=== PATIENT | female | born 1980 | race Caucasian/White ===

== ENCOUNTER 2017-03-11 00:19 | Emergency (ER) | payer OTHER ==
[~2017-03-11] VITALS: Ht 167.6 cm; Wt 127.0 kg
[~2017-03-11 00:19] MED LIST: ABILIFY30 MG PO; AMBIEN10 MG PO; ANAPROX DS550 MG PO; BACTRIM 400 MG-1 TAB PO; BENTYL10 MG PO; CARAFATE1 G1 PO; CELEXA20 MG PO; CELEXA40 MG PO; CLARITIN10 MG PO; COMPAZINE10 MG PO; CORTISPORIN SUS10 ML OT; COZAAR50 MG PO; DIPHENHYDRAMINE25 M2 PO; DONNATAL1 TAB PO; ELAVIL; ELAVIL25 MG PO; FLEXERIL5 MG PO; GEMFIBROZIL600 MG PO; HYDROCHLOROTH12.5 M1 PO; HYDROCHLOROTH12.5 M3 PO; HYDROCODONE BIT1 T11 PO; KEFLEX500 M1 PO; KEFLEX500 MG PO; LASIX20 MG PO; LOMOTIL 0.025 M1 TAB PO; MACROBID100 M1 PO; MEDROL DOSEPAK4 MG PO; MOTRIN800 MG PO; NEURONTIN400 MG PO; PHENERGAN25 M1 PO; PRED FORTE 1 ML1 ML OP; PREDNISONE10 MG PO; PREVACID SOLUTA30 MG PO; RISPERDAL1 M1 PO; SEPTRA DS 800 M1 TAB PO; TRAMADOL HCL50 MG PO; VICODIN 5/500 505 MG PO; VICODIN 500 MG-1 TAB PO; VICODIN ES 7501 TA1 PO; VICODIN ES 7501 TAB PO; VOLTAREN50 M1 PO; XANAX1 MG PO; ZANTAC150 MG PO; ZITHROMAX Z PA250 MG PO; ZOFRAN4 MG PO; ZOLPIDEM TART10 MG PO; Zofran4 MG PO
[2017-03-11] MEDS ORDERED: TRAZODONE50 MG PO (00:37)
[2017-03-11] MEDS ORDERED: PEPCID20 MG PO (00:39)
[2017-03-11] MEDS ORDERED: CIPRODEX 0.3%-7.5 ML OT (00:55)
[2017-03-11] MEDS ORDERED: CIPRO500 MG PO (01:06)
== END 2017-03-11 01:14 | disposition home or self-care (01) ==
LOC: ED 00:19
DX: H60.312 Diffuse otitis externa, left ear (principal); F17.200 Nicotine dependence, unspecified, uncomplicated; Z88.1 Allergy status to other antibiotic agents; Z88.6 Allergy status to analgesic agent; Z88.8 Allergy status to other drugs, medicaments and biological substances; Z79.899 Other long term (current) drug therapy

== ENCOUNTER 2017-06-21 11:51 | Emergency (ER) | payer OTHER ==
[~2017-06-21] VITALS: Ht 167.6 cm; Wt 122.0 kg
[~2017-06-21 11:51] MED LIST changes: +CIPRO500 MG PO; +CIPRODEX 0.3%-7.5 ML OT; +PEPCID20 MG PO; +TRAZODONE50 MG PO
[2017-06-21 13:17] LABS: BASO # 0.1 10*3/uL (0.0-0.1); BASO % 0.6 % (0.0-1.0); HEMATOCRIT 44.2 % (37.0-47.0); HEMOGLOBIN 15.2 g/dl (12.0-16.0); LYMPH # 1.9 10*3/uL (1.3-4.4); MEAN CELL VOLUME 95.7 fl (81.0-99.0); MEAN CORPUSCULAR HGB 32.9 pg (27.0-31.0); MEAN CORPUSCULAR HGB CONC 34.4 g/dl (33.0-37.0); MEAN PLATELET VOLUME 9.6 fl (9.6-12.3); MONO # 0.5 10*3/uL (0.1-1.0); MONO % 4.6 % (3.0-9.0); NEUT # 8.2 10*3/uL (2.3-7.9); NEUT % 76.5 % (47.0-73.0); PLATELET COUNT AUTOMATED 391 10*3/uL (130-400); RED BLOOD COUNT 4.62 10*6/uL (4.10-5.10); RED CELL DISTRI WIDTH 12.9 % (0-14.5); WHITE BLOOD COUNT 10.8 10*3/uL (4.8-10.8)
[2017-06-21 13:33] LABS: ALBUMIN 3.1 gm/dl (3.1-4.5); ALKALINE PHOSPHATASE 90 U/L (45-117); BILIRUBIN, TOTAL 0.3 mg/dl (0.2-1.0); BUN 7 mg/dl (7-24); CARBON DIOXIDE 28 mmol/L (21-32); CHLORIDE 108 mmol/L (98-107); EST GLOM FILT AFRICAN AMERICAN > 60 ml/min; GLUCOSE 104 mg/dL (65-99); POTASSIUM 4.1 mmol/L (3.5-5.1); SGOT/AST 16 IU/L (3-35); SGPT/ALT 17 U/L (12-78); SODIUM 138 mmol/L (136-145); TOTAL PROTEIN 8.1 gm/dL (6.4-8.2)
[2017-06-21 13:39] LABS: BILIRUBIN NEGATIVE (NEGATIVE); BLOOD 3+ (NEGATIVE); CLARITY CLOUDY (CLEAR); COLOR YELLOW (YELLOW); GLUCOSE NEGATIVE (NEGATIVE); KETONE NEGATIVE (NEGATIVE); LEUKO ESTERASE 2+ (NEGATIVE); NITRITE NEGATIVE (NEGATIVE); PROTEIN TRACE (NEGATIVE); SPECIFIC GRAVITY 1.025 (1.005-1.030)
[2017-06-21 13:45] LABS: BACTERIA 2+; RBC 41-50 rbc/hpf (0-2)
[2017-06-21 13:46] LABS: URINE REFLEX COMMENT YES (NO)
[2017-06-21] MEDS ORDERED: PERCOCET 5-3251 EACH PO (15:31)
[2017-06-21] MEDS ORDERED: CIPRO500 MG PO (15:31)
[2017-06-21] MEDS ORDERED: FLOMAX0.4 MG PO (15:31)
== END 2017-06-21 17:01 | disposition home or self-care (01) ==
LOC: ED 11:51
PROVIDERS: Nurse Practitioner Family
DX: N20.0 Calculus of kidney (principal); I10 Essential (primary) hypertension; E78.5 Hyperlipidemia, unspecified; Z88.1 Allergy status to other antibiotic agents; Z88.6 Allergy status to analgesic agent; Z88.8 Allergy status to other drugs, medicaments and biological substances; Z79.899 Other long term (current) drug therapy

== ENCOUNTER 2017-08-04 18:27 | Emergency (ER) | payer OTHER ==
[~2017-08-04] VITALS: Wt 120.2 kg
[~2017-08-04 18:27] MED LIST changes: +FLOMAX0.4 MG PO; +PERCOCET 5-3251 EACH PO
[2017-08-04] MEDS ORDERED: CIPRO500 MG PO (19:10)
[2017-08-04] MEDS ORDERED: CIPRODEX 0.3%-7.5 ML OT (19:10)
== END 2017-08-04 19:18 | disposition home or self-care (01) ==
LOC: ED 18:27
DX: H66.92 Otitis media, unspecified, left ear (principal); F17.200 Nicotine dependence, unspecified, uncomplicated; Z90.49 Acquired absence of other specified parts of digestive tract; Z98.890 Other specified postprocedural states; Z79.899 Other long term (current) drug therapy; Z88.6 Allergy status to analgesic agent; Z88.1 Allergy status to other antibiotic agents; Z88.8 Allergy status to other drugs, medicaments and biological substances

== ENCOUNTER 2018-01-14 17:00 | Emergency (ER) | payer OTHER ==
[~2018-01-14] VITALS: Ht 167.6 cm; Wt 113.4 kg
[2018-01-14] MEDS ORDERED: CEPHALEXIN500 M1 PO (17:23)
== END 2018-01-14 17:35 | disposition home or self-care (01) ==
LOC: ED 17:00
DX: L02.211 Cutaneous abscess of abdominal wall (principal); F17.200 Nicotine dependence, unspecified, uncomplicated; Z98.890 Other specified postprocedural states; Z90.49 Acquired absence of other specified parts of digestive tract; Z79.899 Other long term (current) drug therapy; Z88.6 Allergy status to analgesic agent; Z88.1 Allergy status to other antibiotic agents; Z88.8 Allergy status to other drugs, medicaments and biological substances

== ENCOUNTER → 2018-10-20 | Outpatient (CLI) | payer OTHER ==
[~2018-10-20] MED LIST changes: +AMINOPHYLLIN200 MG PO; +CEPHALEXIN500 M1 PO; +FAMOTIDINE40 MG PO; +IBU800 M1 PO; +LOSARTAN POTASS25 M1 PO; +PHENERGAN25 M3 PO; +PROVENTIL HFA6.7 GM INH
== END | disposition home or self-care (01) ==
LOC: MRI 15:00
DX: M48.07 Spinal stenosis, lumbosacral region (principal); M51.37 Other intervertebral disc degeneration, lumbosacral region; M51.27 Other intervertebral disc displacement, lumbosacral region; M47.897 Other spondylosis, lumbosacral region

== ENCOUNTER 2018-11-15 20:00 | Emergency (ER) | payer OTHER ==
[~2018-11-15] VITALS: Ht 167.6 cm; Wt 113.4 kg
[2018-11-15] MEDS ORDERED: SEPTDS PO (21:12)
[2018-11-15] MEDS ORDERED: CEPHALEXIN500 M1 PO (21:12)
== END 2018-11-15 21:30 | disposition home or self-care (01) ==
LOC: ED 20:00
DX: N61.1 Abscess of the breast and nipple (principal); I10 Essential (primary) hypertension; G89.29 Other chronic pain; E78.5 Hyperlipidemia, unspecified; E66.01 Morbid (severe) obesity due to excess calories; F17.200 Nicotine dependence, unspecified, uncomplicated; Z90.49 Acquired absence of other specified parts of digestive tract; Z88.6 Allergy status to analgesic agent; Z88.1 Allergy status to other antibiotic agents; Z88.8 Allergy status to other drugs, medicaments and biological substances; Z79.2 Long term (current) use of antibiotics; Z79.899 Other long term (current) drug therapy; Z68.42 Body mass index [BMI] 45.0-49.9, adult

== ENCOUNTER 2019-05-20 21:43 | Emergency (ER) | payer OTHER ==
[~2019-05-20] VITALS: Ht 167.6 cm; Wt 120.2 kg
[~2019-05-20 21:43] MED LIST changes: +SEPTDS PO
[2019-05-20] MEDS ORDERED: ONDANSETRON HYDR4 MG PO (23:51)
[2019-05-20] MEDS ORDERED: 'XANAX1 MG PO (23:51)
[2019-06-05] MEDS ORDERED: Motrin,Rufen800 MG PO (23:02)
== END 2019-05-21 00:33 | disposition home or self-care (01) ==
LOC: ED 21:43
DX: S00.83XA Contusion of other part of head, initial encounter (principal); S50.01XA Contusion of right elbow, initial encounter; S80.01XA Contusion of right knee, initial encounter; M25.552 Pain in left hip; M79.652 Pain in left thigh; F17.200 Nicotine dependence, unspecified, uncomplicated; Z88.6 Allergy status to analgesic agent; Z88.1 Allergy status to other antibiotic agents; Z88.8 Allergy status to other drugs, medicaments and biological substances; Z79.899 Other long term (current) drug therapy; Z90.49 Acquired absence of other specified parts of digestive tract; W22.01XA Walked into wall, initial encounter; Y93.K1 Activity, walking an animal; Y92.89 Other specified places as the place of occurrence of the external cause; Y99.8 Other external cause status

== ENCOUNTER 2019-08-26 16:35 | Emergency (ER) | payer OTHER ==
[~2019-08-26] VITALS: Ht 167.6 cm; Wt 113.4 kg
[~2019-08-26 16:35] MED LIST changes: +'XANAX1 MG PO; +Motrin,Rufen800 MG PO; +ONDANSETRON HYDR4 MG PO
[2019-08-26] MEDS ORDERED: CLINDAMYCIN HC300 MG PO (17:16)
[2019-08-26] MEDS ORDERED: NAPROSYN500 MG PO (17:16)
== END 2019-08-26 17:30 | disposition home or self-care (01) ==
LOC: ED 16:35
DX: K02.9 Dental caries, unspecified (principal); F17.200 Nicotine dependence, unspecified, uncomplicated; Z98.890 Other specified postprocedural states; Z90.49 Acquired absence of other specified parts of digestive tract; Z79.899 Other long term (current) drug therapy; Z88.6 Allergy status to analgesic agent; Z88.1 Allergy status to other antibiotic agents; Z88.8 Allergy status to other drugs, medicaments and biological substances

== ENCOUNTER 2019-10-05 19:07 | Emergency (ER) | payer OTHER ==
[~2019-10-05] VITALS: Ht 167.6 cm; Wt 116.1 kg
[~2019-10-05 19:07] MED LIST changes: +CLINDAMYCIN HC300 MG PO; +NAPROSYN500 MG PO
[2019-10-05] MEDS ORDERED: IBUPROFEN600 MG PO (20:49)
== END 2019-10-05 21:50 | disposition home or self-care (01) ==
LOC: ED 19:07
DX: S50.01XA Contusion of right elbow, initial encounter (principal); F17.200 Nicotine dependence, unspecified, uncomplicated; Z88.6 Allergy status to analgesic agent; Z88.1 Allergy status to other antibiotic agents; Z88.8 Allergy status to other drugs, medicaments and biological substances; Z79.899 Other long term (current) drug therapy; Z79.2 Long term (current) use of antibiotics; Y92.090 Kitchen in other non-institutional residence as the place of occurrence of the external cause; W07.XXXA Fall from chair, initial encounter; Y93.89 Activity, other specified; Y99.8 Other external cause status

== ENCOUNTER 2019-10-15 11:46 | Emergency (ER) | payer OTHER ==
[~2019-10-15] VITALS: Ht 167.6 cm; Wt 116.1 kg
[~2019-10-15 11:46] MED LIST changes: +IBUPROFEN600 MG PO
[2019-10-15] MEDS ORDERED: CLINDAMYCIN HC300 MG PO (12:58)
[2019-10-15] MEDS ORDERED: IBUPROFEN600 MG PO (12:58)
== END 2019-10-15 13:57 | disposition home or self-care (01) ==
LOC: ED 11:46
DX: K04.7 Periapical abscess without sinus (principal); I10 Essential (primary) hypertension; Z88.0 Allergy status to penicillin; Z88.8 Allergy status to other drugs, medicaments and biological substances; Z79.899 Other long term (current) drug therapy

== ENCOUNTER → 2020-06-14 | Outpatient (CLI) | payer OTHER ==
[2020-06-14 13:39] LABS: BASO % 0.5 % (0.0-1.0); EOS # 0.2 10*3/uL (0.0-0.4); EOS % 2.8 % (1.0-4.0); HEMATOCRIT 42.4 % (37.0-47.0); LYMPH # 2.9 10*3/uL (1.3-4.4); LYMPH % 38.5 % (27.0-41.0); MEAN CELL VOLUME 98.6 fl (81.0-99.0); MEAN CORPUSCULAR HGB 32.1 pg (27.0-31.0); MEAN CORPUSCULAR HGB CONC 32.5 g/dl (33.0-37.0); MEAN PLATELET VOLUME 9.3 fl (9.6-12.3); MONO # 0.5 10*3/uL (0.1-1.0); MONO % 6.8 % (3.0-9.0); NEUT # 3.8 10*3/uL (2.3-7.9); PLATELET COUNT AUTOMATED 358 10*3/uL (130-400); RED CELL DISTRI WIDTH 12.7 % (0-14.5); RETICULOCYTE % 2.05 % (0.50-2.50); WHITE BLOOD COUNT 7.5 10*3/uL (4.8-10.8)
[2020-06-14 14:17] LABS: BILIRUBIN NEGATIVE (NEGATIVE); BLOOD NEGATIVE (NEGATIVE); CLARITY CLEAR (CLEAR); COLOR YELLOW (YELLOW); GLUCOSE NEGATIVE (NEGATIVE); KETONE NEGATIVE (NEGATIVE); LEUKO ESTERASE NEGATIVE (NEGATIVE); NITRITE NEGATIVE (NEGATIVE); UROBILINOGEN 0.2 E.U./dl (0.2-1.0)
[2020-06-14 14:18] LABS: ALBUMIN 3.3 gm/dl (3.1-4.5); ALKALINE PHOSPHATASE 81 U/L (45-117); BUN 7 mg/dl (7-24); CHLORIDE 108 mmol/L (98-107); CHOLESTEROL 186 mg/dL (<200); CPK 43 U/L (26-192); CREATININE 0.71 mg/dL (0.55-1.02); GAMMA GLUTAMYL TRANSPEPTIDASE 29 U/L (5-55); HDL CHOLESTEROL 30 mg/dl (40-60); IRON 80 ug/dL (50-170); LDL CHOLESTEROL 102 mg/dL (9-159); POTASSIUM 3.8 mmol/L (3.5-5.1); SGOT/AST 19 IU/L (3-35); SGPT/ALT 31 U/L (12-78); SODIUM 141 mmol/L (136-145); TOTAL IRON BINDING CAPACITY 272 ug/dl (250-450); TOTAL PROTEIN 7.6 gm/dL (6.4-8.2); TRIGLYCERIDES 269 mg/dl (<150); VLDL CHOLESTEROL 54 mg/dL (6-40)
[2020-06-14 14:28] LABS: BACTERIA 1+; MUCOUS TRACE; RBC 0-2 rbc/hpf (0-2)
[2020-06-14 14:29] LABS: FERRITIN 147.8 ng/mL (10.0-291.0); VITAMIN D, 25-HYDROXY 25.3 ng/mL (30-100)
== END | disposition home or self-care (01) ==
LOC: LAB 12:53
PROVIDERS: Family Medicine
DX: R79.89 Other specified abnormal findings of blood chemistry (principal); R53.83 Other fatigue; E55.9 Vitamin D deficiency, unspecified; E78.5 Hyperlipidemia, unspecified

== ENCOUNTER → 2021-03-31 | Outpatient (CLI) | payer OTHER ==
[2021-03-31 15:33] LABS: BASO # 0.1 10*3/uL (0.0-0.1); BASO % 1.1 % (0.0-1.0); EOS # 0.1 10*3/uL (0.0-0.4); EOS % 1.6 % (1.0-4.0); HEMATOCRIT 41.4 % (37.0-47.0); LYMPH # 3.6 10*3/uL (1.3-4.4); LYMPH % 42.9 % (27.0-41.0); MEAN CELL VOLUME 97.6 fl (81.0-99.0); MEAN CORPUSCULAR HGB 31.8 pg (27.0-31.0); MEAN CORPUSCULAR HGB CONC 32.6 g/dl (33.0-37.0); MEAN PLATELET VOLUME 9.7 fl (9.6-12.3); MONO # 0.5 10*3/uL (0.1-1.0); MONO % 5.5 % (3.0-9.0); NEUT # 4.1 10*3/uL (2.3-7.9); NEUT % 48.8 % (47.0-73.0); PLATELET COUNT AUTOMATED 244 10*3/uL (130-400); RED BLOOD COUNT 4.24 10*6/uL (4.10-5.10); RED CELL DISTRI WIDTH 12.3 % (0-14.5); WHITE BLOOD COUNT 8.5 10*3/uL (4.8-10.8)
[2021-03-31 15:35] LABS: ALKALINE PHOSPHATASE 79 U/L (45-117); BILIRUBIN Negative (Negative); BLOOD Negative (Negative); BUN 8 mg/dl (7-24); CHLORIDE 115 mmol/L (98-107); CHOLESTEROL 161 mg/dL (<200); CLARITY Clear (Clear); COLOR Yellow (Yellow); GAMMA GLUTAMYL TRANSPEPTIDASE 8 U/L (5-55); GLUCOSE Negative (Negative); KETONE Trace (Negative); LDL CHOLESTEROL 90 mg/dL (9-159); LEUKO ESTERASE Negative (Negative); NITRITE Negative (Negative); PH 5.5 (4.5-8.0); POTASSIUM 4.1 mmol/L (3.5-5.1); SGOT/AST 13 IU/L (3-35); SGPT/ALT 22 U/L (12-78); SODIUM 140 mmol/L (136-145); SPECIFIC GRAVITY >= 1.030 (1.001-1.030); TOTAL IRON BINDING CAPACITY 403 ug/dl (250-450); TOTAL PROTEIN 7.5 gm/dL (6.4-8.2); TRIGLYCERIDES 211 mg/dl (<150)
[2021-03-31 15:37] LABS: RETICULOCYTE % 1.69 % (0.50-2.50)
[2021-03-31 15:42] LABS: IRON 64 ug/dL (50-170)
[2021-03-31 15:45] LABS: FERRITIN 142.8 ng/mL (10.0-291.0); VITAMIN D, 25-HYDROXY 11.1 ng/mL (30-100)
[2021-03-31 15:52] LABS: BACTERIA 1+; EPITHELIAL CELLS 31-40; MUCOUS 2+; WBC 0-2 wbc/hpf (0-5)
[2021-03-31 15:53] LABS: RBC 0-2 rbc/hpf (0-2); YEAST TRACE
== END | disposition home or self-care (01) ==
LOC: LAB 14:57
PROVIDERS: ATTEND Family Medicine
DX: E55.9 Vitamin D deficiency, unspecified (principal); R79.89 Other specified abnormal findings of blood chemistry; R53.83 Other fatigue; E78.5 Hyperlipidemia, unspecified; R74.8 Abnormal levels of other serum enzymes

== ENCOUNTER 2021-04-20 20:35 | Emergency (ER) | payer OTHER ==
[~2021-04-20] VITALS: Ht 167.6 cm; Wt 114.3 kg
[2021-04-20 21:37] LABS: BASO # 0.1 10*3/uL (0.0-0.1); BASO % 0.5 % (0.0-1.0); EOS # 0.3 10*3/uL (0.0-0.4); EOS % 2.9 % (1.0-4.0); HEMATOCRIT 38.2 % (37.0-47.0); LYMPH # 3.6 10*3/uL (1.3-4.4); LYMPH % 39.2 % (27.0-41.0); MEAN CELL VOLUME 95.7 fl (81.0-99.0); MEAN CORPUSCULAR HGB 31.8 pg (27.0-31.0); MEAN CORPUSCULAR HGB CONC 33.2 g/dl (33.0-37.0); MEAN PLATELET VOLUME 9.2 fl (9.6-12.3); MONO # 0.5 10*3/uL (0.1-1.0); MONO % 5.6 % (3.0-9.0); NEUT # 4.8 10*3/uL (2.3-7.9); NEUT % 51.6 % (47.0-73.0); PLATELET COUNT AUTOMATED 394 10*3/uL (130-400); RED BLOOD COUNT 3.99 10*6/uL (4.10-5.10); RED CELL DISTRI WIDTH 12.3 % (0-14.5); WHITE BLOOD COUNT 9.3 10*3/uL (4.8-10.8)
== END 2021-04-20 22:13 | disposition home or self-care (01) ==
LOC: ED 20:35
PROVIDERS: Internal Medicine
DX: M79.672 Pain in left foot (principal); Z48.01 Encounter for change or removal of surgical wound dressing; Z88.8 Allergy status to other drugs, medicaments and biological substances; Z79.899 Other long term (current) drug therapy; Z90.49 Acquired absence of other specified parts of digestive tract; Z98.890 Other specified postprocedural states

== ENCOUNTER 2021-04-23 16:26 | Emergency (ER) | payer OTHER ==
[~2021-04-23] VITALS: Wt 114.3 kg
[2021-04-23] MEDS ORDERED: CLEOCIN HCL150 MG PO (16:56)
== END 2021-04-23 17:15 | disposition home or self-care (01) ==
LOC: ED 16:26
DX: Z48.01 Encounter for change or removal of surgical wound dressing (principal); Z79.899 Other long term (current) drug therapy; Z98.890 Other specified postprocedural states; Z90.49 Acquired absence of other specified parts of digestive tract

== ENCOUNTER → 2021-05-06 | Outpatient (CLI) | payer OTHER ==
[~2021-05-06] MED LIST changes: +CLEOCIN HCL150 MG PO
== END ==
LOC: WOUNDCARE 03:10
PROVIDERS: ATTEND Nurse Practitioner
DX: T81.40XA Infection following a procedure, unspecified, initial encounter (principal); R22.42 Localized swelling, mass and lump, left lower limb; F17.290 Nicotine dependence, other tobacco product, uncomplicated; Z90.49 Acquired absence of other specified parts of digestive tract; Z98.890 Other specified postprocedural states; Z79.899 Other long term (current) drug therapy; Y83.8 Other surgical procedures as the cause of abnormal reaction of the patient, or of later complication, without mention of misadventure at the time of the procedure; Y92.238 Other place in hospital as the place of occurrence of the external cause

== ENCOUNTER → 2021-05-09 | Outpatient (CLI) | payer OTHER | END | disposition home or self-care (01) | LOC: US 09:42 | PROVIDERS: ATTEND Nurse Practitioner | DX: I73.9 Peripheral vascular disease, unspecified (principal) ==

== ENCOUNTER → 2021-05-13 | Outpatient (CLI) | payer OTHER | LOC: WOUNDCARE 01:10 | PROVIDERS: ATTEND Nurse Practitioner | DX: T81.40XD Infection following a procedure, unspecified, subsequent encounter (principal); R22.42 Localized swelling, mass and lump, left lower limb; F17.290 Nicotine dependence, other tobacco product, uncomplicated; Z71.6 Tobacco abuse counseling; Z90.49 Acquired absence of other specified parts of digestive tract; Z98.890 Other specified postprocedural states; Z79.899 Other long term (current) drug therapy; Y83.8 Other surgical procedures as the cause of abnormal reaction of the patient, or of later complication, without mention of misadventure at the time of the procedure ==

== ENCOUNTER → 2021-05-19 | Outpatient (CLI) | payer OTHER | LOC: WOUNDCARE 01:04 | PROVIDERS: ATTEND Nurse Practitioner | DX: T81.40XD Infection following a procedure, unspecified, subsequent encounter (principal); R22.42 Localized swelling, mass and lump, left lower limb; F17.290 Nicotine dependence, other tobacco product, uncomplicated; Z71.6 Tobacco abuse counseling; Z90.49 Acquired absence of other specified parts of digestive tract; Z98.890 Other specified postprocedural states; Z79.899 Other long term (current) drug therapy; Y83.8 Other surgical procedures as the cause of abnormal reaction of the patient, or of later complication, without mention of misadventure at the time of the procedure ==

== ENCOUNTER → 2021-05-23 | Outpatient (CLI) | payer OTHER ==
[2021-05-23 14:53] LABS: BASO # 0.1 10*3/uL (0.0-0.1); BASO % 0.6 % (0.0-1.0); EOS # 0.3 10*3/uL (0.0-0.4); EOS % 2.8 % (1.0-4.0); HEMATOCRIT 41.5 % (37.0-47.0); LYMPH # 3.5 10*3/uL (1.3-4.4); LYMPH % 39.7 % (27.0-41.0); MEAN CELL VOLUME 95.8 fl (81.0-99.0); MEAN CORPUSCULAR HGB 31.9 pg (27.0-31.0); MEAN CORPUSCULAR HGB CONC 33.3 g/dl (33.0-37.0); MEAN PLATELET VOLUME 9.4 fl (9.6-12.3); MONO # 0.5 10*3/uL (0.1-1.0); MONO % 5.1 % (3.0-9.0); NEUT # 4.5 10*3/uL (2.3-7.9); NEUT % 51.7 % (47.0-73.0); PLATELET COUNT AUTOMATED 390 10*3/uL (130-400); RED BLOOD COUNT 4.33 10*6/uL (4.10-5.10); RED CELL DISTRI WIDTH 12.5 % (0-14.5); RETICULOCYTE % 2.04 % (0.50-2.50); WHITE BLOOD COUNT 8.8 10*3/uL (4.8-10.8)
[2021-05-23 15:12] LABS: ALBUMIN 3.6 gm/dl (3.1-4.5); BUN 9 mg/dl (7-24); CHLORIDE 111 mmol/L (98-107); CHOLESTEROL 190 mg/dL (<200); CREATININE 0.65 mg/dL (0.55-1.02); GAMMA GLUTAMYL TRANSPEPTIDASE 21 U/L (5-55); IRON 64 ug/dL (50-170); LDL CHOLESTEROL 126 mg/dL (9-159); POTASSIUM 3.8 mmol/L (3.5-5.1); SGOT/AST 12 IU/L (3-35); SGPT/ALT 20 U/L (12-78); SODIUM 139 mmol/L (136-145); TRIGLYCERIDES 163 mg/dl (<150)
[2021-05-23 15:17] LABS: FERRITIN 145.9 ng/mL (10.0-291.0); VITAMIN D, 25-HYDROXY 18.9 ng/mL (30-100)
[2021-05-23 15:19] LABS: ALKALINE PHOSPHATASE 70 U/L (45-117); TOTAL IRON BINDING CAPACITY 291 ug/dl (250-450)
== END | disposition home or self-care (01) ==
LOC: LAB 01:27
PROVIDERS: ATTEND Family Medicine
DX: E55.9 Vitamin D deficiency, unspecified (principal); R79.89 Other specified abnormal findings of blood chemistry; R53.83 Other fatigue; E78.5 Hyperlipidemia, unspecified; R74.8 Abnormal levels of other serum enzymes

== ENCOUNTER → 2021-05-26 | Outpatient (CLI) | payer OTHER | LOC: WOUNDCARE 01:14 | PROVIDERS: ATTEND Nurse Practitioner | DX: T81.40XD Infection following a procedure, unspecified, subsequent encounter (principal); R22.42 Localized swelling, mass and lump, left lower limb; F17.290 Nicotine dependence, other tobacco product, uncomplicated; Z71.6 Tobacco abuse counseling; Y83.8 Other surgical procedures as the cause of abnormal reaction of the patient, or of later complication, without mention of misadventure at the time of the procedure ==

== ENCOUNTER → 2021-06-04 | Outpatient (CLI) | payer OTHER | LOC: WOUNDCARE 06-02 01:13 | PROVIDERS: ATTEND Nurse Practitioner Primary Care | DX: T81.40XD Infection following a procedure, unspecified, subsequent encounter (principal); R22.42 Localized swelling, mass and lump, left lower limb; F17.290 Nicotine dependence, other tobacco product, uncomplicated; Z71.6 Tobacco abuse counseling; Y83.8 Other surgical procedures as the cause of abnormal reaction of the patient, or of later complication, without mention of misadventure at the time of the procedure ==

== ENCOUNTER → 2021-06-16 | Outpatient (CLI) | payer OTHER | LOC: WOUNDCARE 06-11 02:11 | PROVIDERS: ATTEND Nurse Practitioner | DX: T81.40XD Infection following a procedure, unspecified, subsequent encounter (principal); R22.42 Localized swelling, mass and lump, left lower limb; F17.290 Nicotine dependence, other tobacco product, uncomplicated; Z71.6 Tobacco abuse counseling; Y83.8 Other surgical procedures as the cause of abnormal reaction of the patient, or of later complication, without mention of misadventure at the time of the procedure ==

== ENCOUNTER → 2021-06-23 | Outpatient (CLI) | payer OTHER | LOC: WOUNDCARE 01:03 | PROVIDERS: ATTEND Nurse Practitioner | DX: T81.40XD Infection following a procedure, unspecified, subsequent encounter (principal); T81.31XD Disruption of external operation (surgical) wound, not elsewhere classified, subsequent encounter; R22.42 Localized swelling, mass and lump, left lower limb; F17.290 Nicotine dependence, other tobacco product, uncomplicated; Z71.6 Tobacco abuse counseling; Y83.8 Other surgical procedures as the cause of abnormal reaction of the patient, or of later complication, without mention of misadventure at the time of the procedure ==

== ENCOUNTER → 2021-07-01 | Outpatient (CLI) | payer OTHER ==
[~2021-07-01] MED LIST changes: +ZOFRAN4 MG SL
== END ==
LOC: WOUNDCARE 01:28
PROVIDERS: ATTEND Nurse Practitioner
DX: T81.31XD Disruption of external operation (surgical) wound, not elsewhere classified, subsequent encounter (principal); R22.42 Localized swelling, mass and lump, left lower limb; F17.290 Nicotine dependence, other tobacco product, uncomplicated; Z71.6 Tobacco abuse counseling; Y83.8 Other surgical procedures as the cause of abnormal reaction of the patient, or of later complication, without mention of misadventure at the time of the procedure

== ENCOUNTER 2021-07-20 19:47 | Emergency (ER) | payer OTHER ==
[~2021-07-20] VITALS: Wt 106.6 kg
[~2021-07-20 19:47] MED LIST changes: -ZOFRAN4 MG SL
[2021-07-20 23:31] LABS: MEAN CELL VOLUME 94.9 fl (81.0-99.0); MEAN CORPUSCULAR HGB 31.9 pg (27.0-31.0); MEAN CORPUSCULAR HGB CONC 33.7 g/dl (33.0-37.0); MEAN PLATELET VOLUME 9.4 fl (9.6-12.3); PLATELET COUNT AUTOMATED 351 10*3/uL (130-400); RED BLOOD COUNT 4.32 10*6/uL (4.10-5.10); RED CELL DISTRI WIDTH 12.3 % (0-14.5); WHITE BLOOD COUNT 10.5 10*3/uL (4.8-10.8)
[2021-07-20 23:57] LABS: BILIRUBIN Negative (Negative); BLOOD Negative (Negative); CLARITY Turbid (Clear); COLOR Yellow (Yellow); GLUCOSE Negative (Negative); KETONE Trace (Negative); LEUKO ESTERASE Negative (Negative); NITRITE Negative (Negative); PH 6.5 (4.5-8.0)
[2021-07-21 00:04] LABS: ALBUMIN 3.3 gm/dl (3.1-4.5); ALKALINE PHOSPHATASE 74 U/L (45-117); BUN 8 mg/dl (7-24); CHLORIDE 108 mmol/L (98-107); CREATININE 0.62 mg/dL (0.55-1.02); LIPASE 94 U/L (73-393); PLATELET SUFFICIENCY NORMAL (NORMAL); POTASSIUM 3.4 mmol/L (3.5-5.1); SGOT/AST 12 IU/L (3-35); SGPT/ALT 26 U/L (12-78); SODIUM 142 mmol/L (136-145); TOTAL CELLS COUNTED 100 #CELLS; TOTAL PROTEIN 7.4 gm/dL (6.4-8.2)
[2021-07-21 00:07] LABS: BETA-HCG, QUANT < 1.0 mIU/mL (1-3)
[2021-07-21 00:09] LABS: CALCIUM OXALATE CRYSTALS Trace; RBC 0-2 rbc/hpf (0-2); WBC 0-2 wbc/hpf (0-5)
[2021-07-21] MEDS ORDERED: ZOFRAN4 MG SL (00:31)
== END 2021-07-21 03:03 | disposition home or self-care (01) ==
LOC: ED 19:47
PROVIDERS: Physician Assistant
DX: R10.30 Lower abdominal pain, unspecified (principal); R11.2 Nausea with vomiting, unspecified; F17.200 Nicotine dependence, unspecified, uncomplicated; Z90.49 Acquired absence of other specified parts of digestive tract; Z98.890 Other specified postprocedural states; Z88.1 Allergy status to other antibiotic agents; Z88.8 Allergy status to other drugs, medicaments and biological substances; Z79.899 Other long term (current) drug therapy; Z79.2 Long term (current) use of antibiotics

== ENCOUNTER → 2022-01-13 | Outpatient (CLI) | payer OTHER ==
[~2022-01-13] MED LIST changes: +ZOFRAN4 MG SL
== END | disposition home or self-care (01) ==
LOC: RAD 14:41
PROVIDERS: ATTEND Family Medicine
DX: M25.522 Pain in left elbow (principal)

== ENCOUNTER 2022-06-05 15:36 | Emergency (ER) | payer OTHER ==
[~2022-06-05] VITALS: Ht 167.6 cm; Wt 111.1 kg
[2022-06-05] MEDS ORDERED: KENALOG 0.1%80 GM T (16:38)
== END 2022-06-05 16:47 | disposition home or self-care (01) ==
LOC: ED 15:36
DX: L50.9 Urticaria, unspecified (principal); Z90.49 Acquired absence of other specified parts of digestive tract; Z98.890 Other specified postprocedural states; Z87.891 Personal history of nicotine dependence; Z79.899 Other long term (current) drug therapy; Z88.1 Allergy status to other antibiotic agents; Z88.8 Allergy status to other drugs, medicaments and biological substances

== ENCOUNTER 2022-06-07 13:18 | Emergency (ER) | payer OTHER ==
[~2022-06-07] VITALS: Wt 111.1 kg
[~2022-06-07 13:18] MED LIST changes: +KENALOG 0.1%80 GM T
== END 2022-06-07 14:52 | disposition home or self-care (01) ==
LOC: ED 13:18
DX: L30.8 Other specified dermatitis (principal); F17.200 Nicotine dependence, unspecified, uncomplicated; Z98.890 Other specified postprocedural states; Z90.49 Acquired absence of other specified parts of digestive tract; Z88.1 Allergy status to other antibiotic agents; Z88.8 Allergy status to other drugs, medicaments and biological substances

== ENCOUNTER 2022-09-20 13:40 | Emergency (ER) | payer OTHER ==
[~2022-09-20] VITALS: Wt 108.4 kg
[2022-09-20] MEDS ORDERED: VIBRA-TAB100 MG PO (14:05)
== END 2022-09-20 14:18 | disposition home or self-care (01) ==
LOC: ED 13:40
DX: L03.211 Cellulitis of face (principal); L02.01 Cutaneous abscess of face; Z87.891 Personal history of nicotine dependence; Z90.49 Acquired absence of other specified parts of digestive tract; Z98.890 Other specified postprocedural states; Z79.899 Other long term (current) drug therapy; Z88.1 Allergy status to other antibiotic agents

== ENCOUNTER 2023-01-23 16:11 | Emergency (ER) | payer OTHER ==
[~2023-01-23] VITALS: Ht 167.6 cm; Wt 103.9 kg
[~2023-01-23 16:11] MED LIST changes: +VIBRA-TAB100 MG PO
[2023-01-23] MEDS ORDERED: SEPTDS PO (17:10)
[2023-01-23] MEDS ORDERED: IBUPROFEN600 MG PO (17:10)
== END 2023-01-23 17:12 | disposition home or self-care (01) ==
LOC: ED 16:11
DX: L02.01 Cutaneous abscess of face (principal); F41.9 Anxiety disorder, unspecified; I10 Essential (primary) hypertension; F31.9 Bipolar disorder, unspecified; G47.00 Insomnia, unspecified; Z88.1 Allergy status to other antibiotic agents; Z90.49 Acquired absence of other specified parts of digestive tract; Z98.890 Other specified postprocedural states; F10.10 Alcohol abuse, uncomplicated

== ENCOUNTER → 2023-03-15 | Day surgery (SDC) | payer OTHER ==
[~2023-03-15] VITALS: Ht 167.6 cm; Wt 98.0 kg
[~2023-03-15] MED LIST changes: +HYDROCODONE-AC1 EAC1 PO; +ONDANSETRON HYDR4 M1 PO; +TRINTELLIX20 MG PO
[2023-03-15 09:45] VITALS: BP 149/76
[2023-03-15 11:35] VITALS: BP 137/86
[2023-03-15 11:50] VITALS: BP 143/80
== END | disposition home or self-care (01) ==
LOC: SDC 03-11 10:15
PROVIDERS: ATTEND Surgery
DX: S00.83XA Contusion of other part of head, initial encounter (principal); D23.39 Other benign neoplasm of skin of other parts of face; L72.0 Epidermal cyst; F41.9 Anxiety disorder, unspecified; G47.00 Insomnia, unspecified; F31.9 Bipolar disorder, unspecified; F17.210 Nicotine dependence, cigarettes, uncomplicated; K21.9 Gastro-esophageal reflux disease without esophagitis; J45.909 Unspecified asthma, uncomplicated; Z90.49 Acquired absence of other specified parts of digestive tract; Z90.89 Acquired absence of other organs; X58.XXXA Exposure to other specified factors, initial encounter; Y93.89 Activity, other specified; Y92.89 Other specified places as the place of occurrence of the external cause; Y99.8 Other external cause status

== ENCOUNTER 2023-06-28 14:46 | Emergency (ER) | payer OTHER ==
[~2023-06-28] VITALS: Ht 165.1 cm; Wt 94.3 kg
[2023-06-28 16:20] LABS: BASO # 0.1 10*3/uL (0.0-0.1); BASO % 0.6 % (0.0-1.0); EOS # 0.2 10*3/uL (0.0-0.4); EOS % 2.1 % (1.0-4.0); HEMATOCRIT 42.3 % (37.0-47.0); LYMPH # 2.9 10*3/uL (1.3-4.4); LYMPH % 33.9 % (27.0-41.0); MEAN CELL VOLUME 98.8 fl (81.0-99.0); MEAN CORPUSCULAR HGB 33.4 pg (27.0-31.0); MEAN CORPUSCULAR HGB CONC 33.8 g/dl (33.0-37.0); MEAN PLATELET VOLUME 9.2 fl (9.6-12.3); MONO # 0.4 10*3/uL (0.1-1.0); MONO % 4.8 % (3.0-9.0); NEUT # 4.9 10*3/uL (2.3-7.9); NEUT % 58.4 % (47.0-73.0); PLATELET COUNT AUTOMATED 359 10*3/uL (130-400); RED BLOOD COUNT 4.28 10*6/uL (4.10-5.10); RED CELL DISTRI WIDTH 12.1 % (0-14.5); WHITE BLOOD COUNT 8.5 10*3/uL (4.8-10.8)
[2023-06-28 16:44] LABS: ALKALINE PHOSPHATASE 74 U/L (46-116); BETA-HCG, QUANT < 3.0 mIU/mL (3-10); BUN 7 mg/dl (9-23); CHLORIDE 109 mmol/L (98-107); LIPASE 25 U/L (12-53); POTASSIUM 4.3 mmol/L (3.4-5.1); SGPT/ALT 9 U/L (10-49); TOTAL PROTEIN 7.4 gm/dL (6.0-8.0)
[2023-06-28 16:55] LABS: BILIRUBIN Negative (Negative); BLOOD Negative (Negative); CLARITY Cloudy (Clear); COLOR Dark Yellow (Yellow); GLUCOSE Negative (Negative); KETONE Trace (Negative); LEUKO ESTERASE Trace (Negative); NITRITE Negative (Negative); PH 5.5 (4.5-8.0); SPECIFIC GRAVITY 1.025 (1.001-1.030)
[2023-06-28 17:11] LABS: BACTERIA 1+; EPITHELIAL CELLS 16-20; MUCOUS 2+; RBC 0-2 rbc/hpf (0-2)
[2023-06-28] MEDS ORDERED: CIPRO500 MG PO (18:37)
[2023-06-28] MEDS ORDERED: PHENERGAN25 M3 PO (18:37)
== END 2023-06-28 18:39 | disposition home or self-care (01) ==
LOC: ED 14:46
PROVIDERS: Emergency Medicine
DX: N39.0 Urinary tract infection, site not specified (principal); F17.200 Nicotine dependence, unspecified, uncomplicated; Z87.442 Personal history of urinary calculi; Z88.1 Allergy status to other antibiotic agents; Z79.899 Other long term (current) drug therapy; Z90.49 Acquired absence of other specified parts of digestive tract; Z98.890 Other specified postprocedural states

== ENCOUNTER 2024-03-21 09:15 | Emergency (ER) | payer OTHER ==
[~2024-03-21] VITALS: Ht 167.6 cm; Wt 98.4 kg
[2024-03-21 10:30] LABS: BASO # 0.1 10*3/uL (0.0-0.1); BASO % 0.9 % (0.0-1.0); HEMATOCRIT 45.3 % (37.0-47.0); LYMPH # 1.9 10*3/uL (1.3-4.4); LYMPH % 29.1 % (27.0-41.0); MEAN CELL VOLUME 100.2 fl (81.0-99.0); MEAN CORPUSCULAR HGB 33.2 pg (27.0-31.0); MEAN CORPUSCULAR HGB CONC 33.1 g/dl (33.0-37.0); MONO # 0.4 10*3/uL (0.1-1.0); MONO % 5.7 % (3.0-9.0); NEUT # 4.2 10*3/uL (2.3-7.9); NEUT % 64.1 % (47.0-73.0); PLATELET COUNT AUTOMATED 374 10*3/uL (130-400); RED BLOOD COUNT 4.52 10*6/uL (4.10-5.10); RED CELL DISTRI WIDTH 11.8 % (0-14.5); WHITE BLOOD COUNT 6.5 10*3/uL (4.8-10.8)
[2024-03-21] MEDS ORDERED: REXULTI2 MG PO (10:44)
[2024-03-21] MEDS ORDERED: TRAZODONE HYDR300 MG PO (10:44)
[2024-03-21] MEDS ORDERED: BUSPIRONE HCL10 MG PO (10:45)
[2024-03-21] MEDS ORDERED: Cyclobenzaprine Hydrochlorid 10 MG TAB PO ONE (10:45)
[2024-03-21] MEDS ORDERED: ARIPIPRAZOLE20 MG PO (10:45)
[2024-03-21] MEDS ORDERED: COLESTIPOL HYDRO1 GM PO (10:46)
[2024-03-21] MEDS ORDERED: PANTOPRAZOLE SO40 MG PO (10:46)
[2024-03-21 10:50] LABS: ALKALINE PHOSPHATASE 76 U/L (46-116); BUN 7 mg/dl (9-23); CHLORIDE 107 mmol/L (98-107); POTASSIUM 4.3 mmol/L (3.4-5.1); SGPT/ALT 12 U/L (5-49); TOTAL PROTEIN 7.7 gm/dL (6.0-8.0)
== END 2024-03-21 12:21 | disposition left against medical advice (07) ==
LOC: ED 09:15
PROVIDERS: Internal Medicine
DX: M54.6 Pain in thoracic spine (principal); R22.2 Localized swelling, mass and lump, trunk; F17.200 Nicotine dependence, unspecified, uncomplicated; Z88.1 Allergy status to other antibiotic agents; Z79.899 Other long term (current) drug therapy; Z90.49 Acquired absence of other specified parts of digestive tract; Z98.890 Other specified postprocedural states; Z53.29 Procedure and treatment not carried out because of patient's decision for other reasons

== ENCOUNTER → 2024-04-04 | Outpatient (CLI) | payer OTHER ==
[~2024-04-04] MED LIST changes: +ARIPIPRAZOLE20 MG PO; +BUSPIRONE HCL10 MG PO; +COLESTIPOL HYDRO1 GM PO; +PANTOPRAZOLE SO40 MG PO; +REXULTI2 MG PO; +TRAZODONE HYDR300 MG PO
== END | disposition home or self-care (01) ==
LOC: RAD 17:12
PROVIDERS: ATTEND Family Medicine
DX: M47.812 Spondylosis without myelopathy or radiculopathy, cervical region (principal); M25.78 Osteophyte, vertebrae; M48.061 Spinal stenosis, lumbar region without neurogenic claudication

== ENCOUNTER 2024-10-04 20:21 | Emergency (ER) | payer OTHER ==
[~2024-10-04] VITALS: Wt 94.8 kg
[2024-10-04] MEDS ORDERED: VIBRAMYCIN100 MG PO (20:52)
[2024-10-04] MEDS ORDERED: CEPHALEXIN500 M1 PO (20:52)
[2024-10-04] MEDS ORDERED: CEPHALEXIN 500 MG CAP PO ONE (20:55)
[2024-10-04] MEDS ORDERED: Doxycycline Hyclate 100 MG CAP PO ONE (20:55)
== END 2024-10-04 21:09 | disposition home or self-care (01) ==
LOC: ED 20:21
DX: L02.212 Cutaneous abscess of back [any part, except buttock and flank] (principal); F31.9 Bipolar disorder, unspecified; F41.9 Anxiety disorder, unspecified; F17.200 Nicotine dependence, unspecified, uncomplicated; Z88.1 Allergy status to other antibiotic agents; Z90.49 Acquired absence of other specified parts of digestive tract; Z98.890 Other specified postprocedural states